=== PATIENT | female | born 1970 | race Hispanic/Latino ===

== ENCOUNTER 2017-11-19 15:35 | Emergency (ER) | payer SELFPAY ==
[2017-11-19 15:40] VITALS: BP 116/86; PULSE 89; RESP 18; TEMP 98.5; O2SAT 99
--- NOTE | 2017-11-19 16:00 | C.PDOC ---
History Of Present Illness 47 y/o female presents to ED with c/o left lateral ankle pain after twisting ankle while walking. Patient states he fell to ground and denies loc, head injury, nausea, vomiting, numbness or any other complaints at this time. Time Seen by Provider: 11/19/17 15:47 Chief Complaint (Nursing): Lower Extremity Problem/Injury History Per: Patient History/Exam Limitations: no limitations Onset/Duration Of Symptoms: Days Current Symptoms Are (Timing): Still Present Past Medical History Reviewed: Historical Data, Nursing Documentation, Vital Signs Vital Signs: Last Vital Signs Temp 98.5 F 11/19/17 15:38 Pulse 89 11/19/17 15:38 Resp 18 11/19/17 15:38 BP 116/86 11/19/17 15:38 Pulse Ox 99 11/19/17 16:26 - Medical History PMH: No Chronic Diseases Surgical History: No Surg Hx Family History: States: No Known Family Hx - Social History Hx Alcohol Use: No Hx Substance Use: No Review Of Systems Musculoskeletal: Positive for: Foot Pain. Negative for: Leg Pain Skin: Negative for: Rash, Bruising Neurological: Negative for: Weakness, Numbness Physical Exam - Physical Exam Appears: Non-toxic, No Acute Distress Skin: Warm, Dry, No Rash Head: Atraumatic, Normacephalic Eye(s): bilateral: Normal Inspection Oral Mucosa: Moist Extremity: Capillary Refill (<2 seconds), No Deformity, Swelling (left lateral ankle) Extremity: Bilateral: Normal ROM Pulses: Left Dorsalis Pedis: Normal Neurological/Psych: Oriented x3, Normal Motor, Normal Sensation ED Course And Treatment O2 Sat by Pulse Oximetry: 99 (RA) Pulse Ox Interpretation: Normal - Other Rad L ankle X-Ray: Interpreted by Me (neg) Medical Decision Making Medical Decision Making: ankle sprain, no fx Disposition Doctor Will See Patient In The: Office Counseled Patient/Family Regarding: Studies Performed, Diagnosis - Disposition Referrals: [facility], [facility]–1983 Service [Outside] [facility] [Outside] [place] [facility] [Outside] Disposition: HOME/ ROUTINE Disposition Time: 16:26 Condition: GOOD Additional Instructions: x-ray NO fracture ice pack 1/2 hour per hour, nothing hot no hot soaking motrin 400-600 mg every 6 hours as needed keep elevated. crutch walking as needed. Instructions: Ankle Sprain Forms: [facility] (Slovenian), Work Excuse - Clinical Impression Clinical Impression: Ankle sprain - Scribe Statement The provider has reviewed the documentation as recorded by the Scribjaquan Stack All medical record entries made by the Nancyibe were at my direction and personally dictated by me. I have reviewed the chart and agree that the record accurately reflects my personal performance of the history, physical exam, medical decision making, and the department course for this patient. I have also personally directed, reviewed, and agree with the discharge instructions and disposition.
--- NOTE | 2017-11-19 16:26 | RAD ---
Left ankle three views History: Ankle sprain. Comparison: None available. Findings: Prominent lateral malleolar soft tissue swelling. On the lateral view, there is suboptimal patient positioning, limiting evaluation for dislocation. Some questionable anterior subluxation of the tibia in relationship to the talus may be related to patient positioning. Repeat lateral view may be helpful if clinically indicated. Impression: Prominent lateral malleolar soft tissue swelling. On the lateral view, there is suboptimal patient positioning, limiting evaluation for dislocation. Some questionable anterior subluxation of the tibia in relationship to the talus may be related to patient positioning. Repeat lateral view may be helpful if clinically indicated. If pain persists, consider MRI.
== END 2017-11-19 17:15 | disposition home or self-care (01) ==
LOC: C.ER 15:35
DX: S93.402A Sprain of unspecified ligament of left ankle, initial encounter (principal); X50.1XXA Overexertion from prolonged static or awkward postures, initial encounter; Y93.01 Activity, walking, marching and hiking; Y92.9 Unspecified place or not applicable